=== PATIENT | male | born 1990 | race Caucasian/White ===

== ENCOUNTER 2017-08-10 14:32 | Emergency (ER) | payer OTHER ==
--- NOTE | 2017-08-10 16:03 | ED Physician Documentation ---
PD HPI LOWER EXT INJURY - Stated complaint Stated Complaint: 2ND GREAT TOE RT INJ - Chief complaint Chief Complaint: General - History obtained from History obtained from: Patient - History of Present Illness PD HPI LOW EXT INJURY LOCATION: Left, Toe (middle) Type of injury: Blunt / blow Where injury occurred: [place] Timing - onset: Yesterday Timing - duration: Days (1) Timing - details: Abrupt onset, Still present Improved by: Rest, Immobilization Worsened by: Moving, Palpating Associated symptoms: Swelling, Discolored. No: Weakness, Numbness Contributing factors: No: Anticoagulated Similar symptoms before: Has not had sx before Recently seen: Not recently seen - Additional information Additional information: 27-year-old male was in a tiwari yesterday and contused his left middle toe multiple times. He has pain erythema and swelling to the middle toe. He has been able to walk mostly on his heel and after period of time he has grunted through the pain. Review of Systems Constitutional: denies: Fever Eyes: denies: Decreased vision Ears: denies: Ear pain Nose: denies: Congestion Throat: denies: Sore throat Cardiac: denies: Chest pain / pressure Respiratory: denies: Dyspnea, Cough GI: denies: Vomiting Musculoskeletal: reports: Joint pain, Joint swelling, Pain with weight bearing PD PAST MEDICAL HISTORY - Past Medical History Past Medical History: No - Past Surgical History Past Surgical History: No - Present Medications Home Medications: Ambulatory Orders Medication Instructions Recorded Confirmed Ibuprofen [Motrin] 800 mg PO Q8H PRN #30 tablet 07/28/15 - Allergies Allergies/Adverse Reactions: Allergies Allergy/AdvReac Type Severity Reaction Status Date / Time No Known Drug Allergies Allergy Verified 07/28/15 17:42 - Social History Does the pt smoke?: No Smoking Status: Never smoker Does the pt drink ETOH?: Yes Does the pt have substance abuse?: No - Immunizations Immunizations are current?: Yes - POLST Patient has POLST: No PD ED PE NORMAL - Vitals Vital signs reviewed: Yes (hypertensive ) - General General: No acute distress, Well developed/nourished - HEENT HEENT: Atraumatic, PERRL - Respiratory Respiratory: No respiratory distress - Derm Derm: Normal color, Warm and dry, No rash - Extremities Extremities: Other (The left middle toe is erythematous non-blanching consistent with a bruise and tender. ) - Neuro Neuro: No motor deficit, No sensory deficit Eye Opening: Spontaneous Motor: Obeys Commands Verbal: Oriented GCS Score: 15 - Psych Psych: Normal mood, Normal affect Results - Vitals Vitals: Vital Signs - 24 hr 08/10/17 14:34 Temperature 36.3 C L Heart Rate 68 Respiratory 18 Rate Blood Pressure 162/71 H O2 Saturation 98 Oxygen O2 Source Room air - Rads (name of study) right foot Radiology: Prelim report reviewed (Impression: No fracture or bony deformity.), EMP read indepedently, See rad report PD MEDICAL DECISION MAKING - ED course Complexity details: reviewed results, re-evaluated patient, considered differential, d/w patient ED course: 27-year-old male with a contused right middle toe has a bit of erythema associated with it and it is tender mildly swollen and no evidence for fracture. It does not appear infected. - Sepsis Event Vital Signs: Vital Signs - 24 hr 08/10/17 14:34 Temperature 36.3 C L Heart Rate 68 Respiratory 18 Rate Blood Pressure 162/71 H O2 Saturation 98 Oxygen O2 Source Room air Departure - Departure Disposition: 01 Home, Self Care Clinical Impression: Contusion of toe of right foot Qualifiers: Encounter type: initial encounter Toe: lesser toe Damage to nail status: without damage Qualified Code(s): S90.121A - Contusion of right lesser toe(s) without damage to nail, initial encounter Condition: Stable Instructions: ED Contusion Lower Ext Follow-Up: PAUL GARCIA MD [Primary Care Provider] -
--- NOTE | 2017-08-10 16:28 | XRAY Report ---
Procedure Date: 08/10/2017 Accession Number: [id number] / [id number] Procedure: XR - Foot 3 View RT CPT Code: FULL RESULT: EXAM: RIGHT FOOT RADIOGRAPHY EXAM DATE: 08/10/2017 04:21 PM. CLINICAL HISTORY: Middle toe contusion. COMPARISON: None. TECHNIQUE: 3 views. FINDINGS: Bones: No fracture or bony destruction. Joints: Normal. No subluxations. Soft Tissues: Unremarkable IMPRESSION: No fracture or bony deformity RADIA
[2017-08-10 16:59] VITALS: BP 140/60
== END 2017-08-10 16:59 | disposition home or self-care (01) ==
LOC: ED 14:32
DX: S90.121A Contusion of right lesser toe(s) without damage to nail, initial encounter (principal); W22.8XXA Striking against or struck by other objects, initial encounter; Y92.830 Public park as the place of occurrence of the external cause
CPT/HCPCS: 99282; 99283